=== PATIENT | female | born 1990 | race Caucasian/White ===

== ENCOUNTER 2016-06-22 08:20 | Inpatient (IN) | payer OTHER ==
[~2016-06-22] VITALS: Ht 162.6 cm; Wt 83.9 kg
[2016-06-22 08:45] VITALS: BP 117/69
[2016-06-22] MEDS ORDERED: PREN1TAB80 PO (08:47)
[2016-06-22] MEDS ORDERED: OXYTOCIN 30 UNITS/LACT RINGERS 500 ML IV ONE (10:42)
[2016-06-22] MEDS ORDERED: RINGERS SOLUTION,LACTATED 1,000 ML IV PRN (10:42)
[2016-06-22] MEDS ORDERED: OXYGEN THERAPY IH SCH (10:45)
[2016-06-22] MEDS ORDERED: METOCLOPRAMIDE HCL 5 MG/ML 2 ML VIAL IVP PRN (10:45)
[2016-06-22] MEDS ORDERED: CITRIC ACID/SODIUM CITRATE 30 ML SOLUTION UDCUP PO PRN (10:45)
[2016-06-22] MEDS ORDERED: FentaNYL CITRATE-PF 100 MCG/2 ML VIAL IVP PRN (10:45)
[2016-06-22 11:24] LABS: BASOPHILS # (AUTO) 0.05 K/uL (0.00-0.20); BASOPHILS % (AUTO) 0.4 % (0.0-2.0); EOSINOPHILS # (AUTO) 0.07 K/uL (0.00-0.70); EOSINOPHILS % (AUTO) 0.58 % (1.0-6.0); HEMATOCRIT 39.7 % (36-46); HEMOGLOBIN 13.3 g/dL (12.0-16.0); LYMPHOCYTES # (AUTO) 2.1 K/uL (1.0-4.8); LYMPHOCYTES % (AUTO) 18.6 % (22.0-44.0); MEAN CORPUSCULAR HEMOGLOBIN 28.8 pg (26.0-34.0); MEAN CORPUSCULAR HGB CONC 33.5 G/dL (31.0-37.0); MEAN CORPUSCULAR VOLUME 86 fL (80-100); MONOCYTES # (AUTO) 0.5 K/uL (0.1-1.0); MONOCYTES % (AUTO) 4.3 % (2.0-9.0); NEUTROPHILS # (AUTO) 8.7 K/uL (1.8-7.7); NEUTROPHILS % (AUTO) 76.1 % (40.0-70.0); RED BLOOD CELL COUNT(AUTO) 4.61 MIL/uL (4.00-5.20); RED CELL DISTRIBUTION WIDTH 13.6 % (11.5-14.5); WHITE BLOOD COUNT (AUTO) 11.5 K/uL (4.5-11.0)
[2016-06-22] MEDS ORDERED: DINOPROSTONE 10 MG VAGINAL SUPPOSITORY VG ONE (12:30)
[2016-06-22] MEDS: RINGERS SOLUTION,LACTATED 1,000 ML IV SCH (20:13)
[2016-06-23] MEDS ORDERED: -PHARMACY NOTE- MISC ONE ×2 (00:30)
[2016-06-23] MEDS ORDERED: OXYTOCIN 30 UNITS/LACT RINGERS 500 ML IV ONE (01:21)
[2016-06-23] MEDS: FentaNYL CITRATE-PF 100 MCG/2 ML VIAL IVP PRN ×2 (01:35→01:40)
[2016-06-23] MEDS ORDERED: FentaNYL/BUPIV 0.125%/NS/PF 200 ML ED ONE (02:58)
[2016-06-23] MEDS ORDERED: BUPIVACAINE HCL/PF 0.25% 10 ML VIAL ONE (02:58)
[2016-06-23] MEDS ORDERED: LIDOCAINE HCL/PF 2% 5 ML VIAL ONE (02:58)
[2016-06-23] MEDS: RINGERS SOLUTION,LACTATED 1,000 ML IV SCH ×3 (03:02→12:32)
[2016-06-23] MEDS ORDERED: FentaNYL/BUPIV 0.125%/NS/PF 200 ML ED PRN (03:40)
[2016-06-23] MEDS ORDERED: PROMETHAZINE HCL 12.5 MG in SODIUM CHLORIDE 0.9% 50 ML IV PRN (03:45)
[2016-06-23] MEDS ORDERED: NALBUPHINE HCL 10 MG/ML VIAL IVP PRN ×2 (03:45)
[2016-06-23] MEDS ORDERED: DiphenhydrAMINE HCL 50 MG/ML VIAL IVP PRN (03:45)
[2016-06-23] MEDS ORDERED: ONDANSETRON HCL 4 MG/2 ML VIAL IVP PRN (03:45)
[2016-06-23] MEDS ORDERED: AMPICILLIN SODIUM 2 GM/NS 100 ML IV ONE ×2 (13:31→14:15)
[2016-06-23] MEDS ORDERED: CeFAZolin 2 GM/DEXTROSE 50 ML IV ONE (13:45)
[2016-06-23] MEDS: LIDOCAINE HCL/PF 1% 30 ML VIAL INJ PRN ×2 (13:45→15:22)
[2016-06-23] MEDS ORDERED: LIDOCAINE HCL/PF 1% 30 ML VIAL ONE (13:49)
[2016-06-23] MEDS ORDERED: LANOLIN 7 GM OINTMENT TP PRN (16:00)
[2016-06-23] MEDS ORDERED: ACETAMINOPHEN/CODEINE 300-30 MG TABLET PO PRN ×2 (16:00)
[2016-06-23] MEDS: GLYCERIN/WITCH HAZEL LEAF 40 PADS JAR TP PRN (18:24)
[2016-06-23] MEDS: BENZOCAINE 20%/MENTHOL 56 GM SPRAY CANISTER TP PRN (18:24)
[2016-06-23] MEDS: IBUPROFEN 600 MG TABLET PO PRN (22:16)
[2016-06-23] MEDS: MAGNESIUM HYDROXIDE SUSPENSION 30 ML UDCUP PO PRN (22:16)
[2016-06-24] MEDS: MAGNESIUM HYDROXIDE SUSPENSION 30 ML UDCUP PO PRN (08:23)
[2016-06-24] MEDS: IBUPROFEN 600 MG TABLET PO PRN (08:23)
[2016-06-24] MEDS: GLYCERIN/WITCH HAZEL LEAF 40 PADS JAR TP PRN (08:24)
[2016-06-24] MEDS: BENZOCAINE 20%/MENTHOL 56 GM SPRAY CANISTER TP PRN (08:24)
[2016-06-24] MEDS ORDERED: IBUP-2070 PO (09:42)
[2016-06-24] MEDS ORDERED: DSS100 PO (09:42)
== END 2016-06-24 12:30 | disposition home or self-care (01) | DRG 775 ==
LOC: OBSVTOIN 08:20 → 4S 08:20
PROVIDERS: ADMIT Obstetrics & Gynecology; ATTEND Obstetrics & Gynecology
PROC: 10907ZC Drainage of Amniotic Fluid, Therapeutic from Products of Conception, Via Natural or Artificial Opening (ICD-10-PCS; principal; 2016-06-23)
PROC: 10E0XZZ Delivery of Products of Conception, External Approach (ICD-10-PCS; 2016-06-23)
PROC: 0KQM0ZZ Repair Perineum Muscle, Open Approach (ICD-10-PCS; 2016-06-23)
PROC: 3E033VJ Introduction of Other Hormone into Peripheral Vein, Percutaneous Approach (ICD-10-PCS; 2016-06-23)
PROC: 3E0S3CZ (ICD-10-PCS; 2016-06-23)
DX: O70.1 Second degree perineal laceration during delivery (principal); Z37.0 Single live birth; Z3A.40 40 weeks gestation of pregnancy
CPT/HCPCS: 86850; 86900; 86901; J0290; J2405; J2590; J3010; J3490; J7120